=== PATIENT | female | born 1940 | race Two or more races ===

== ENCOUNTER 2024-07-24 21:20 | Emergency (ER) | payer MEDICAID, OTHER ==
[~2024-07-24] VITALS: Ht 160 cm; Wt 63.0 kg
--- NOTE | 2024-07-24 21:29 | ED.PDOC ---
Back pain HPI HPI Comments HPI: 83-year-old female brought in by EMS presents with a chief complaint of right hip pain s/p mechanical fall from a standing position. Patient had a mechanical slip and fall while attempting to walk on tile with just her socks. Patient had no LOC and did not hit her head. Patient denies any medical history and does not take any medications for anything. Patient has right sided hip pain to palpation and upon standing. Patient has no deformities. Patient was able to stand for EMS with the pain. PMHx: Denies PSHx: Denies Allergies: None Initial Vital Signs: BP: HR: Temp: SpO2: RR: HPI: Poor Historian. Past Medcial History: Past Surgical History: REVIEW OF SYSTEMS: CONSTITUTIONAL: Denies acute: fever, diaphoresis, chills, generalized weakness. HEAD: Denies acute: headache, photophobia Eyes: Denies acute: Double vision, vision loss, eye pain, eye discharge. EARS: Denies acute: tinnitus, hearing loss, ear discharge, ear pain, THROAT: Denies acute: sore throat, swelling, difficulty swallowing , pain with swallowing, change in voice. NECK: Denies acute: neck pain, neck swelling, stiff neck. HEART: Denies acute : chest pain, palpitations, LUNGS: Denies acute: SOB, wheezing, cough, hemoptysis ABDOMEN: Denies acute: abdominal pain, Nausea, Vomiting, diarrhea, melena , hematemesis, hematochezia SKIN: Denies acute: rash, redness, lesions, itchiness. EXTREMITIES: Denies acute: calf pain, numbness, tingling, weakness, Denies acute: Low back pain. Neuro: Denies acute: focal neurological deficit, motor or sensory focal neurological deficit, tremors, seizure like activity, confusion, dizziness, change in mental status, loss of bowel or bladder function, cauda equina like symptoms. : Denies acute: dysuria, hematuria, flank pain, increase in urinary frequency. PSYCH: Denies acute: hallucination, suicidal ideation, homicidal ideation. FEMALE: Denies acute: abnormal vaginal bleeding, foul odor, unusual discharge. PHYSICAL EXAM: General: no acute distress, awake and alert. Head: normocephalic, atraumatic. Neck: supple, trachea is midline, no swelling. Throat: Normal phonation. Eyes:, no erythema, no purulent discharge, no proptosis, no icterus. Heart: regular rate, regular rhythm, no significant murmur appreciated. Lungs: no apparent respiratory distress, Able to speak in full sentences. No wheezing, no rhonchi, no crackles. No stridors Clear to auscultation bilaterally. Abdomen: non tender to palpation, non distended, soft, no guarding, no rebound, + bowel sounds. Patient is neurovascularly intact in bilateral lower extremity. Pedal pulses are palpable. Sensation and motor are present. Decreased range of motion of the right lower extremity of flexion of the hip and knee secondary to right hip pain. Neuro: Awake, Alert, oriented to name, self, situation, follows commands GCS=15. Speech is normal. Pelvic rock and does not produce any pain however palpation of the right femoral region is tender to palpation. No apparent significant swelling. Skin: no petechia, no purpura, no cyanosis, non-pale, not jaundice. Lower extremities: --no - Pitting edema no deformity, no focal swelling, no calf TTP. Makes eye contact. moves all four extremities. Face: no apparent facial droop. Pedal pulses are palpable. Time Seen by MD: 21:22 Reviewed Notes: Medications, Allergies Allergies: Coded Allergies: NO KNOWN ALLERGIES (Unverified , 07/24/24) Information Source: Patient, Emergency Med Personnel Past Medical History PAST MEDICAL HISTORY: Denies Surgical History: Denies all surgeries CORRECTIONS CADET History: Denies all CORRECTIONS CADET Hx Family History Family History: Reviewed,noncontributory to illness Social History Smoker: Non-Smoker Alcohol: Denies ETOH Use Drugs: Denies Drug Use Lives In: Home Was a procedure done? Was a procedure done?: No Back Pain Differential Dx Differential Diagnosis: Other (Fracture, dislocation, hematoma, neurovascular injury, compartment syndrome, spinal cord injury) X-Ray, Labs, Meds, VS Vital Signs Date Time Temp Pulse Resp B/P (MAP) Pulse Ox O2 Delivery O2 Flow Rate FiO2 07/25/24 01:28 98.5 82 10 153/71 (98) 97 98.5 07/24/24 21:20 98.8 69 16 150/70 (96) 96 Lab Test 07/24/24 21:41 Range/Units White Blood Count 6.9 4.4-10.8 10^3/uL Red Blood Count 3.86 L 4.0-5.20 10^6/uL Hemoglobin 12.7 12.2-16.2 g/dL Hematocrit 37.7 36.0-46.0 % Mean Corpuscular Volume 97.5 80.0-100.0 fL Mean Corpuscular Hemoglobin 32.9 H 28.0-32.0 pg Mean Corpuscular Hemoglobin Concent 33.8 32.0-36.0 g/dL Red Cell Distribution Width 15.5 H 11.8-14.3 % Platelet Count 192 140-450 10^3/uL Mean Platelet Volume 8.7 6.9-10.8 fL Neutrophils (%) (Auto) 88.7 H 37.0-80.0 % Lymphocytes (%) (Auto) 7.5 L 10.0-50.0 % Monocytes (%) (Auto) 3.6 0.0-12.0 % Eosinophils (%) (Auto) 0.1 0.0-7.0 % Basophils (%) (Auto) 0.1 0.0-2.0 % Neutrophils # (Auto) 6.1 1.6-8.6 10 ^3/uL Lymphocytes # (Auto) 0.5 0.4-5.4 10 ^3/uL Monocytes # (Auto) 0.2 0-1.3 10 ^3/uL Eosinophils # (Auto) 0 0-0.8 10 ^3/uL Basophils # (Auto) 0 0-0.2 10 ^3/uL Nucleated Red Blood Cells 0.1 % Sodium Level 141 136-145 mmol/L Potassium Level 3.1 L 3.5-5.1 mmol/L Chloride Level 104 98-107 mmol/L Carbon Dioxide Level 28 20-31 mmol/L Anion Gap 9 5-15 Blood Urea Nitrogen 10 9-23 mg/dL Creatinine 0.57 0.550-1.02 mg/dL Glomerular Filtration Rate Calc 90 >90 mL/min BUN/Creatinine Ratio 17.5 10.0-20.0 Serum Glucose 147 H 74-106 mg/dL Calcium Level 9.6 8.7-10.4 mg/dL Total Bilirubin 2.4 H 0.2-1.0 mg/dL Aspartate Amino Transferase (AST) 22 13-40 U/L Alanine Aminotransferase (ALT) 15 7-40 U/L Alkaline Phosphatase 135 H 46-116 U/L Troponin I High Sensitivity 5 </=34 ng/L Total Protein 7.3 5.7-8.2 g/dL Albumin 4.4 3.2-4.8 g/dL Time of 1ST Reevaluation: 21:52 Reevaluation 1ST: Unchanged Patient Education/Counseling: Diagnosis, Treatment Family Education/Counseling: Other Comments Patient presented with the above HPI.---right pelvic pain/fall---workup was initiated. patient was found with the above mentioned diagnosis. the following medications were ordered: please refer to order lists of meds and tests obtained by myself Dr. Murrieta. Patient ED course and VS have been stabilized. Patient has been reassessed in the ED and remained in a stable condition. Pertinent incidental findings were discussed with the patient and/or family. Patient/family voices understanding and is agreeable with plan. Patient has been observed in the ED adequate length of time to insure improvement/stability. Escalation of care considered: Consideration of escalation to observation or admission Patient was ADMITTED to the medicine team for further evaluation and treatment of their presentation. All the reports of any imaging studies that were ordered by myself were reviewed by myself. Departure 1 Departure Time of Disposition: 00:16 Impression: Primary Impression: Fracture of femoral neck, right Disposition: ADMITTED INPATIENT Admit to: Tele Condition: Guarded Discharged With: Self Critical Care Note Critical Care Time?: No I personally scribed for PEDRO MURRIETA DO ([email or web address]) on 07/24/24 at 21:29. Electronically submitted by Lewis Villatoro ([email or web address]). PEDRO MURRIETA DO Jul 24, 2024 21:29
[2024-07-24 21:58] LABS: Basophils # (auto) 0 10 ^3/uL (0-0.2); Basophils % (auto) 0.1 % (0.0-2.0); Eosinophils # (auto) 0 10 ^3/uL (0-0.8); Eosinophils % (auto) 0.1 % (0.0-7.0); Hematocrit 37.7 % (36.0-46.0); Hemoglobin 12.7 g/dL (12.2-16.2); Lymphocytes # (auto) 0.5 10 ^3/uL (0.4-5.4); Lymphocytes % (auto) 7.5 % (10.0-50.0); Mean Corpuscular Hemoglobin 32.9 pg (28.0-32.0); Mean Corpuscular Hgb Conc. 33.8 g/dL (32.0-36.0); Mean Corpuscular Volume 97.5 fL (80.0-100.0); Monocytes # (auto) 0.2 10 ^3/uL (0-1.3); Monocytes % (auto) 3.6 % (0.0-12.0); Neutrophils # (auto) 6.1 10 ^3/uL (1.6-8.6); Neutrophils % (auto) 88.7 % (37.0-80.0); Nucleated Red Blood Cells % 0.1 %; Platelet Count (auto) 192 10^3/uL (140-450); Red Blood Cells 3.86 10^6/uL (4.0-5.20); Red Cell Distribution Width 15.5 % (11.8-14.3); White Blood Cell 6.9 10^3/uL (4.4-10.8)
[2024-07-24 22:16] LABS: Alanine Aminotransferase 15 U/L (7-40); Albumin 4.4 g/dL (3.2-4.8); Anion Gap 9 (5-15); Aspartate Aminotransferase 22 U/L (13-40); BUN/Creatinine Ratio 17.5 (10.0-20.0); Blood Urea Nitrogen 10 mg/dL (9-23); Calcium 9.6 mg/dL (8.7-10.4); Carbon Dioxide 28 mmol/L (20-31); Chloride 104 mmol/L (98-107); Sodium 141 mmol/L (136-145)
[2024-07-24 22:18] LABS: Total Protein 7.3 g/dL (5.7-8.2)
[2024-07-24 22:22] LABS: Alkaline Phosphatase 135 U/L (46-116); Bilirubin, Total 2.4 mg/dL (0.2-1.0); Glucose 147 mg/dL (74-106); Potassium 3.1 mmol/L (3.5-5.1)
--- NOTE | 2024-07-24 22:57 | DVH ---
CT SCAN ABDOMEN AND PELVIS WITHOUT CONTRAST CLINICAL HISTORY: fall, r hip pain TECHNIQUE: Helical axial images are obtained from the lung bases through the pelvis without oral cont rast. No intravenous contrast was administered. Coronal and sagittal reformatted images were generate d from thin section reconstructions. One or more of the following radiation dose reduction techniques were used for this examination: automated exposure control, adjustment of the mA and/or kV according to patient size, use of iterative reconstruction technique. COMPARISON: None FINDINGS: LOWER THORAX: Imaged lung bases are grossly clear. Coronary artery calcifications. ABDOMEN AND PELVIS: Evaluation of visceral and vascular structures is limited due to lack of contrast administration. As visualized, the unenhanced liver, spleen, pancreas and adrenals appear grossly unremarkable. Large , laminated cholelithiasis. Mild gallbladder wall thickening may be a chronic finding. Ultrasound may be obtained to further evaluate. No hydroureteronephrosis or sizable, obstructing urinary tract calculi identified. Aortoiliac atherosclerotic calcifications. No evidence of abdominal aortic aneurysm. No evidence of bowel obstruction. No free intraperitoneal air or fluid identified. No sizable bladder calculus. Anterior wedge compression deformity of T11, age indeterminate but somewhat chronic appearing. No re tropulsed fracture fragments. Comminuted and displaced fractures of the right femoral neck with intertrochanteric extension. IMPRESSION: Right femoral neck fracture with intertrochanteric components. Age indeterminate but relatively chronic appearing T11 compression fracture. Other findings as above.
[2024-07-25 01:30] VITALS: PULSE 82; RESP 10
[2024-07-25] MEDS: HYDROcodone-ACET 5/325MG TAB PO ONE (02:08)
[2024-07-25 07:05] LABS: Urine Bacteria FEW /hpf (None Seen); Urine Blood TRACE /uL (Negative); Urine Clarity Turbid (Clear); Urine Hyaline Cast MANY /lpf (0 - 2); Urine Mucus MODERATE (None Seen); Urine Protein, UAD 1+ (Negative); Urine Specific Gravity 1.023 (1.001-1.035); Urine Squamous Epithelial Cell FEW /hpf (<5); Urine Urobilinogen Normal (Negative); Urine WBC 257 /HPF (0-5); Urine WBC Clumps PRESENT /hpf (None Seen)
[2024-07-25 07:06] LABS: Urine Color Amber (Yellow)
[2024-07-25 07:30] VITALS: PULSE 74; RESP 17; O2SAT 95
[2024-07-25] MEDS ORDERED: MORPHINE SULFATE INJ 2 MG/ml SYRG IV PRN ×2 (08:30)
[2024-07-25] MEDS ORDERED: HYDROcodone-ACET 5/325MG TAB PO PRN (08:30)
[2024-07-25] MEDS ORDERED: NITROGLYCERIN 0.4 MG SL TAB SL PRN (08:30)
--- NOTE | 2024-07-25 08:31 | DVHHP2 ---
Review of Systems Allergies: Coded Allergies: NO KNOWN ALLERGIES (Unverified , 07/24/24) Exam Vital Signs Vital Signs Date Time Temp Pulse Resp B/P (MAP) Pulse Ox O2 Delivery O2 Flow Rate FiO2 07/25/24 07:39 74 17 130/52 (78) 94 07/25/24 07:30 Room Air* 0 21 07/25/24 01:28 98.5 98.5 Labs/Xrays Labs Test 07/25/24 02:23 07/24/24 21:41 Range/Units Urine Color Dianna H Yellow Urine Clarity Turbid H Clear Urine pH 5.0 5.0-9.0 Urine Specific [place] 1.023 1.001-1.035 Urine Protein 1+ H Negative Urine Ketones 1+ H Negative Urine Blood Trace H Negative /uL Urine Nitrite 2+ H Negative Urine Bilirubin Negative Negative Urine Urobilinogen Normal Negative mg/dL Urine Leukocyte Esterase 3+ Negative /uL Urine RBC 7 0 - 4 /hpf Urine WBC Clumps Present None Seen /hpf Urine Microscopic WBC 257 H 0-5 /HPF Urine Squamous Epithelial Cells Few <5 /hpf Urine Calcium Oxalate Crystals Few None Seen Urine Bacteria Few H None Seen /hpf Urine Hyaline Casts Many 0 - 2 /lpf Urine Mucus Moderate None Seen Urine Glucose Trace Normal mg/dL White Blood Count 6.9 4.4-10.8 10^3/uL Red Blood Count 3.86 L 4.0-5.20 10^6/uL Hemoglobin 12.7 12.2-16.2 g/dL Hematocrit 37.7 36.0-46.0 % Mean Corpuscular Volume 97.5 80.0-100.0 fL Mean Corpuscular Hemoglobin 32.9 H 28.0-32.0 pg Mean Corpuscular Hemoglobin Concent 33.8 32.0-36.0 g/dL Red Cell Distribution Width 15.5 H 11.8-14.3 % Platelet Count 192 140-450 10^3/uL Mean Platelet Volume 8.7 6.9-10.8 fL Neutrophils (%) (Auto) 88.7 H 37.0-80.0 % Lymphocytes (%) (Auto) 7.5 L 10.0-50.0 % Monocytes (%) (Auto) 3.6 0.0-12.0 % Eosinophils (%) (Auto) 0.1 0.0-7.0 % Basophils (%) (Auto) 0.1 0.0-2.0 % Neutrophils # (Auto) 6.1 1.6-8.6 10 ^3/uL Lymphocytes # (Auto) 0.5 0.4-5.4 10 ^3/uL Monocytes # (Auto) 0.2 0-1.3 10 ^3/uL Eosinophils # (Auto) 0 0-0.8 10 ^3/uL Basophils # (Auto) 0 0-0.2 10 ^3/uL Nucleated Red Blood Cells 0.1 % Sodium Level 141 136-145 mmol/L Potassium Level 3.1 L 3.5-5.1 mmol/L Chloride Level 104 98-107 mmol/L Carbon Dioxide Level 28 20-31 mmol/L Anion Gap 9 5-15 Blood Urea Nitrogen 10 9-23 mg/dL Creatinine 0.57 0.550-1.02 mg/dL Glomerular Filtration Rate Calc 90 >90 mL/min BUN/Creatinine Ratio 17.5 10.0-20.0 Serum Glucose 147 H 74-106 mg/dL Calcium Level 9.6 8.7-10.4 mg/dL Total Bilirubin 2.4 H 0.2-1.0 mg/dL Aspartate Amino Transferase (AST) 22 13-40 U/L Alanine Aminotransferase (ALT) 15 7-40 U/L Alkaline Phosphatase 135 H 46-116 U/L Troponin I High Sensitivity 5 </=34 ng/L Total Protein 7.3 5.7-8.2 g/dL Albumin 4.4 3.2-4.8 g/dL Assessment/Plan My Orders Orders - NICHELLE CUEVA Procedure Category Date Status Time Admit ADMIT 07/25/24 Verified 08:26 Allergies [facility] 07/25/24 Verified 08:26 Code Status CODE 07/25/24 Verified 08:26 Enoxaparin Sodium [facility] 07/25/24 Verified (Lovenox) 10:00 Cardiac DIET 07/25/24 Verified Diet-2gna,Lofat,Lochol Breakfast Echo 2d Mode Cardiac US 07/25/24 Verified DOP 08:26 Condition: Fair [facility] 07/25/24 Verified 08:26 Nitroglycerin [facility] 07/25/24 Verified Sublingual (Ntrostat 08:30 Morphine Sulfate [facility] 07/25/24 Verified Injection 08:30 Stat Ekg For Chest [facility] 07/25/24 Verified Pain 08:26 Notify Md Of Changes [facility] 07/25/24 Verified From Base 08:26 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
[2024-07-25] MEDS ORDERED: cefTRIAXone 1GM/50ML D5W 50 ML IV SCH (09:00)
[2024-07-25] MEDS: ENOXAPARIN SOD 40 MG/0.4 ML SYRINGE SC SCH (10:00)
--- NOTE | 2024-07-25 11:48 | DVH ---
CHEST RADIOGRAPH Indication: SURGERY Technique: Single frontal view of the chest was obtained COMPARISON: None FINDINGS: Lines and Tubes: None Lungs: Clear Pleura: No effusion. No pneumothorax. Cardiomediastinal contours: Unremarkable Bones: Unremarkable IMPRESSION: No acute disease.
--- NOTE | 2024-07-25 11:49 | DVH ---
CLINICAL INDICATION: trauma TECHNIQUE: 2 radiographic views of the right hip and 1 view of the pelvis were obtained. Comparison: None FINDINGS/IMPRESSION: Impacted and displaced fracture of the right intertrochanteric region
[2024-07-25] MEDS: POTASSIUM CHL 20 Meq TABLET PO ONE (12:46)
[2024-07-25] MEDS: POTASSIUM CHL 20MEQ/100ML 100 ML IV ONE (12:46)
[2024-07-25 14:06] VITALS: BP 157/52; PULSE 79; RESP 11; TEMP 98.2; O2SAT 98
[2024-07-25] MEDS ORDERED: MORPHINE SULFATE INJ 2 MG/ml SYRG IV ONE (14:15)
[2024-07-25] MEDS ORDERED: MORPHINE SULFATE 4 MG/ML SYR/VIAL ONE (14:16)
== END 2024-07-25 14:17 | disposition short-term general hospital (02) ==
LOC: ER 21:20 → EDBD 21:20 → UNDOADMIN 07-25 08:26 → TELE 07-25 08:26 → ER 07-25 11:01
DX: S12.8XXA Fracture of other parts of neck, initial encounter (principal); Z79.899 Other long term (current) drug therapy; X58.XXXA Exposure to other specified factors, initial encounter; Y93.89 Activity, other specified; Y92.89 Other specified places as the place of occurrence of the external cause; Y99.8 Other external cause status
CPT/HCPCS: 36415; 71045; 73502; 74176; 80053; 81001; 84484; 85025; 87086; 87088; 87186; 93306; 96365; 96366; 99285; J2270; J3480